=== PATIENT | female | born 1975 | race Caucasian/White ===

== ENCOUNTER 2025-11-23 09:28 | Outpatient (CLI) | payer BC, SELFPAY | END 2025-11-23 09:29 | disposition home or self-care (01) | PROVIDERS: PCP Family Medicine; Visit Provider Obstetrics & Gynecology | DX: N92.0 Excessive and frequent menstruation with regular cycle (principal); Z13.6 Encounter for screening for cardiovascular disorders; Z13.1 Encounter for screening for diabetes mellitus | CPT/HCPCS: 80061; 82947; 84443 ==